=== PATIENT | male | born 1960 | race Two or more races ===

== ENCOUNTER 2017-02-22 09:53 | Emergency (ER) | payer OTHER ==
[2017-02-22 10:04] VITALS: BP 143/93
[2017-02-22] MEDS ORDERED: Cyclobenzaprine TAB* 10 MG PO ONE (11:07)
[2017-02-22] MEDS ORDERED: Ibuprofen TAB* 400 MG PO ONE (11:07)
[2017-02-22] MEDS ORDERED: oxyCODONE/Acetamin 5/325 MG* TAB PO ONE (11:08)
[2017-02-22] MEDS ORDERED: HYDROcodone/ACETAMIN 5-325 MG* 1 TAB PO ONE (11:13)
--- NOTE | 2017-02-22 12:01 | RAD ---
Indication: Low back pain following lifting injury 1 day ago. LEFT side pain with moving legs. Comparison: December 25, 2011 CT. Technique: AP, lateral, and oblique views lumbar sacral spine. Report: Variant bilateral sacralization of L5. 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 Negative for vertebral body or posterior element fracture at any level. Negative for spondylolisthesis. Mild vertebral endplate osteophytosis at L2-L3 and L3-L4 without significant disc space narrowing. Unremarkable paraspinal soft tissue contours. IMPRESSION: No traumatic injury of the lumbar sacral spine evident. Mild degenerative spondylosis.
--- NOTE | 2017-02-22 14:24 | UC ---
ale Bennett Timothy, scribed for Jermain Mckeon MD on 02/22/17 at 1103 . Back Pain HPI - HPI Summary HPI Summary: Edmund Harry is a 57 yo male presenting to [facility] with 9/10 back pain since this morning. Pt states he was carrying a sign on campus yesterday, and awoke this morning with slight lower back pain. When he walked up the stairs at 0915 this morning he went into a "full blown attack" of low back spasms concentrated to the left side, which caused him to be unable to move secondary to pain. He denies any bladder or bowel incontinence. He denies any fever, chills, or falls. He has [id number] with 600mg ibuprofen at 0700 this morning. Pt's coworker is present in room. His MHx includes colon CA 2011, chemotherapy. Dr. Son follows him for his CA, Dr. Mistry is his PCP. - History of Current Complaint Chief Complaint: UCBackPain Stated Complaint: BACK PAIN Time Seen by Provider: 02/22/17 11:02 Hx Obtained From: Patient Onset/Duration: Sudden Onset, Lasting Hours, Still Present Timing: Constant Severity Initially: Moderate Severity Currently: Moderate Pain Intensity: 9 Pain Scale Used: 0-10 Numeric Back Pain: Is Discrete @ - lower back left side Character: Spasmodic Aggravating: Movement, Walking - Allergies/Home Medications Allergies/Adverse Reactions: Allergies Allergy/AdvReac Type Severity Reaction Status Date / Time No Known Allergies Allergy Verified 02/22/17 10:06 PMH/Surg Hx/FS Hx/Imm Hx Other Cancer History: colon CA 2011 - Surgical History Surgical History: Yes Surgery Procedure, Year, and Place: colon CA removal - Family History Known Family History: Positive: Other - colon CA Negative: Diabetes - Social History Alcohol Use: Rare Substance Use Type: None Smoking Status (MU): Never Smoked Tobacco Review of Systems Constitutional: Negative Skin: Negative Eyes: Negative ENT: Negative Respiratory: Negative Cardiovascular: Negative Gastrointestinal: Negative Genitourinary: Negative Motor: Negative Neurovascular: Negative Musculoskeletal: Other: - low left back pain, spasms Neurological: Negative Psychological: Negative All Other Systems Reviewed And Are Negative: Yes Physical Exam Triage Information Reviewed: Yes Vital Signs: Initial Vital Signs Temp 97.5 F 02/22/17 09:59 Pulse 80 02/22/17 09:59 Resp 20 02/22/17 09:59 BP 143/93 02/22/17 09:59 Pulse Ox 100 02/22/17 09:59 Vital Signs Reviewed: Yes Diagnostics - Radiology L-Spine XR Xray Interpretation: No Acute Changes - IMPRESSION: No traumatic injury of the lumbar sacral spine evident. Mild degenerative spondylosis. Radiology Interpretation Completed By: Radiologist Re-Evaluation - Re-Evaluation First Eval Re-Evaluation Time: 12:17 Change: Improved Comment: Discussed results of imaging study. Reviewed course of Tx with Pt, answered questions Pt posed to best of ability. Pt is able to stand and walk. Back Pain Course/Dx - Course Course Of Treatment: Edmund Yip is a 57 yo male presenting to [facility] with 9/10 low left back pain and spasms today after carrying a heavy sign yesterday. Sx were instigated by walking up stairs; when he awoke it was mild low back pain. Pt medication list reviewed this visit. In the urgent care course he received flexeril and hydrocodone for pain management. His L-Spine XR suggests no traumatic injury, and mild degnerative spondylosis. After clinical examination and review of his imaging studies, he will be discharged home with appropriate instructions and follow up. Pt's questions were answered to best of ability. - Differential Dx/Diagnosis Differential Diagnosis/HQI/PQRI: Fracture, Strain Provider Diagnoses: lumbar strain Discharge - Discharge Plan Condition: Stable Disposition: HOME Prescriptions: Cyclobenzaprine TAB* [Flexeril 10 MG TAB*] 10 mg PO TID PRN #14 tab PRN Reason: Spasms Ibuprofen TAB* [Motrin TAB* 600 MG] 600 mg PO Q6H PRN #20 tab PRN Reason: Pain - Moderate To Severe Patient Education Materials: Low Back Strain (ED) Referrals: Benjamin Mistry MD [Primary Care Provider] - 2 Days Lidia Price MD [Medical Doctor] - 2 Days Additional Instructions: Please follow up with your primary care physician and the orthopedist provided regarding your visit to urgent care today. Return to urgent care or the emergency department with any new or recurring symptoms. The documentation as recorded by the ale elliott Timothy accurately reflects the service I personally performed and the decisions made by , Jermain Mckeon MD.
== END 2017-02-22 12:52 | disposition home or self-care (01) ==
LOC: UCEAST 09:53
DX: S39.012A Strain of muscle, fascia and tendon of lower back, initial encounter (principal); X50.0XXA Overexertion from strenuous movement or load, initial encounter; Y93.89 Activity, other specified; Y92.9 Unspecified place or not applicable; Y99.9 Unspecified external cause status
CPT/HCPCS: 72110; 99212; A9270-GY; G0463